=== PATIENT | male | born 1960 | race Caucasian/White ===

== ENCOUNTER → 2023-07-21 06:27 | Day surgery (SDC) | payer OTHER, SELFPAY ==
[2023-07-21 07:41] LABS: Glucose - Point of Care 129 mg/dl (70-99)
== END ==
LOC: GI 06:27
PROVIDERS: ATTENDING PHYSICIAN Surgery
DX: Z12.11 Encounter for screening for malignant neoplasm of colon (principal); K57.30 Diverticulosis of large intestine without perforation or abscess without bleeding; D12.8 Benign neoplasm of rectum; D12.4 Benign neoplasm of descending colon; Z86.010 Personal history of colon polyps
CPT/HCPCS: 45380; 88305; 82962

== ENCOUNTER 2024-12-24 17:14 | Inpatient (IN) | payer OTHER, SELFPAY ==
[2024-12-24] VITALS (13 sets, daily range): BP systolic 79–116; BP diastolic 57–96
--- NOTE | 2024-12-24 13:25 | ED.GENMED ---
History of Present Illness
General
Chief Complaint: Abdominal Pain
Source: patient
Exam Limitations: none
Time Seen by Provider: 12/24/24 13:24
History of Present Illness
History of Present Illness:
64yoM with a history of coronary artery disease s/p PCI, hypertension, and hyperlipidemia presenting for evaluation of diarrhea. Symptoms have been ongoing for 1 week. He reports diarrhea, lower abdominal cramping, fatigue, decreased appetite, and
shortness of breath. He is having at least 5 watery bowel movements daily. He was at the [facility] when symptoms began. He denies any suspicious food intake, sick contacts, or recent antibiotics. He denies any fevers, vomiting, chest pain,
hematochezia. No previous abdominal surgeries.
Phy Exam
General Physical Exam
General Presentation: well appearing and no apparent distress
General Skin: warm and dry
General Habitus: normal
General Mental: alert
ENT Exam
ENT Exam: normocephalic
Cardiovascular Exam
Cardiovascular Exam: regular rate/rhythm and no murmur
Pulmonary Exam
Pulmonary Exam: lungs clear, no respiratory distress, no rales, no crackles, no rhonchi and no wheezing
Gastrointestinal Exam
Gastrointestinal Exam: soft, non distended and other (+RLQ and suprapubic tenderness. Abdomen soft, non-distended. No rebound or guarding.)
Neurological Exam
Neurological Exam: alert
Latrell Coma Scale
Eye Opening: Spontaneous
Verbal Response: Oriented
Motor Response: Obeys Commands
GCS Total Score: 15
Skin Exam
Skin Exam: normal color and warm/dry
Psychiatric Exam
Psychiatric Exam: normal mood/affect
Course
Orders/Labs/Results
Orders:
Orders
12/24/24 13:17
Electrocardiogram (*1) Urgent
Reason for Study: Other
Other Reason for Exam: Possible Sepsis
12/24/24 13:18
EKG- Treatment ONCE
12/24/24 13:32
Cardiac Monitoring- Treatment ONCE
Stool Culture Urgent
RAINA Source: Feces/Stool
Specimen Description:
0.9% Sodium Chloride 1000 ml [Nss] 1,000 ml IV BOLUS
12/24/24 13:33
CT Abd/pelvis W Iv Cont Urgent
Comment:
Reason For Exam: lower abd pain, diarrhea
12/24/24 13:37
Complete Blood Count/With Diff Urgent
Comprehensive Metabolic Panel Urgent
Lactate Level [Lactic Acid] Urgent
Lipase Urgent
Magnesium Urgent
Troponin I Urgent
12/24/24 14:19
0.9% Sodium Chloride 1000 ml [Nss] 1,000 ml IV BOLUS
Abnormal Lab Results
12/24/24
13:37
MCH 31.9 H pg
(27.0-31.0)
Absolute Monos (auto) 0.8 H 10^3/uL
(0.1-0.6)
Monocytes % 11.2 H %
(1.7-9.3)
Chloride 110 H mmol/L
(98-107)
Carbon Dioxide 13 L* mmol/L
(22-30)
BUN 68 H mg/dl
(9-20)
Creatinine 1.7 H mg/dL
(0.7-1.3)
Glucose 125 H mg/dl
(70-99)
Calcium 10.9 H mg/dl
(8.4-10.2)
Alkaline Phosphatase 33 L U/L
(38-126)
Lipase 320 H U/L
(23-300)
12/24/24 13:37
12/24/24 13:37
Vital Signs
Initial and Last Documented VS:
Initial Vital Signs
Temp Pulse Resp BP Pulse Ox
98.1 F 107 16 79/59 98
12/24/24 13:11 12/24/24 13:11 12/24/24 13:11 12/24/24 13:11 12/24/24 13:11
Last Documented Vital Signs
Temp Pulse Resp BP Pulse Ox
98.1 F 86 15 93/74 99
12/24/24 13:11 12/24/24 16:00 12/24/24 16:00 12/24/24 16:00 12/24/24 15:00
MDM/Problems Addressed
Differential Diagnosis Includes:
64yoM here with diarrhea, fatigue, lower abd cramping x 1 week. No fevers. BP 79/59 on arrival and HR 107. BP improved to 90/63 on initial exam. He is non-toxic appearing. No signs of peritonitis on abdominal exam. Differential diagnosis includes
but is not limited to: gastroenteritis, food poisoning, diverticulitis, colitis, dehydration
Initial ED plan: Check abdominal labs, lactate, troponin/EKG, stool culture, and CT abdomen. IV fluid bolus.
*Pulse Oximetry
SaO2: 98
Oxygen Mode of Delivery: Room air
Patient hypoxic: no (98%)
*EKG
Interpreted by ED Provider?: Yes
EKG Intrepretation Date: 12/24/24
Heart Rate: 91
Rate: normal
Rhythm: sinus
[place]: normal axis
Interval: normal interval
QRS Pattern: normal QRS
Ischemia: no ischemia
*Critical Care Note
Total Time (30-74mins, 75-104mins- exclusive of procedures): Not Applicable
Update Note
Update Note:
Creatinine 1.7, up from 1.1 last month (patient able to show me his outpatient lab work on his phone). Bicarb is 13. White count and lactate normal. CT shows evidence of enteritis. BP improved with fluid resuscitation. Patient admitted for further
management.
ED Attending Note
-
Portions of this chart may have been created with voice recognition software.� Occasional wrong word or��sound alike� substitutions may have occurred due to the inherent limitations of voice recognition software.
Discharge Plan
Departure
Patient Disposition: Admit
Date of Disposition: 12/24/24
Time of Disposition: 16:13
Presentation/result/management discussed w/ accepting MD/DO: Hospitalist
Discharge Problem:
Acute kidney injury, High anion gap metabolic acidosis, Acute diarrhea
Referrals:
Dandy Helton CRNP [Family Provider]
Interventions
Interventions:
*Risk Screen - Suicide Last Done: 12/24/24 13:11
*General Assessment Last Done: 12/24/24 13:43
*Neglect/Abuse Screening Last Done: 12/24/24 13:11
*ED- Fall Risk Assessment Last Done: 12/24/24 13:43
*ED COVID-19 Vaccine History Last Done: 12/24/24 13:43
MJ-Tnfokm-Opttpoxlbo Assessment Last Done: 12/24/24 13:43
Discharge Date and Time
Print Language: MOLDOVAN
[2024-12-24] MEDS: NSS 1000 IV ×3 (13:38→20:52)
[2024-12-24 13:52] LABS: Hematocrit 44.4 % (39.0-52.0); Hemoglobin 15.3 g/dL (13.0-18.0); Mean Corp Hgb Conc. 34.5 g/dL (33.0-37.0); Mean Corpuscular Volume 92.5 fL (80.0-94.0); Nucleated Red Blood Cells % 0 % (-); Platelet Count 215 10^3/uL (130-400); Red Cell Dist. Width 13.1 % (11.5-14.5)
[2024-12-24 14:14] LABS: ALT (SGPT) 26 U/L (0-50); AST (SGOT) 18 U/L (17-59); Albumin 4.9 g/dl (3.5-5.0); Alkaline Phosphatase 33 U/L (38-126); Blood Urea Nitrogen 68 mg/dl (9-20); Calcium 10.9 mg/dl (8.4-10.2); Carbon Dioxide 13 mmol/L (22-30); Chloride 110 mmol/L (98-107); Glucose 125 mg/dl (70-99); Lipase 320 U/L (23-300); Magnesium 2.0 mg/dl (1.6-2.3); Potassium 5.0 mmol/L (3.5-5.1); Sodium 136 mmol/L (135-145); Total Protein 7.4 g/dl (6.3-8.2); eGFR 45.02
[2024-12-24 14:15] LABS: Troponin I < 0.012 ng/ml
--- NOTE | 2024-12-24 16:24 | HPS.HSE ---
Family Physician
-
Family Physician: KIP Campa
Chief Complaint
-
diarrhea
History of Present Illness
HPI
64M HX CAD s/p s/p PCI, hypertension, and hyperlipidemia seen at ER
- for evaluation of diarrhea.
- at least 5 watery bowel movements daily.
- Symptoms have been ongoing for 1 week.
- POS lower abdominal cramping, fatigue, decreased appetite, and shortness of breath.
- He was at the [facility] when symptoms began.
- He denies any suspicious food intake, sick contacts, or recent antibiotics.
- He denies any fevers, vomiting, chest pain, hematochezia.
- No previous abdominal surgeries.
Medical History
Past Medical History
Past Medical History: Reports CAD (s/p PCI ), HTN and Hypercholesterolemia
Past Surgical History: Reports None
Social History
Tobacco: Non-smoker
Family History
Family History: Not pertinent
Allergies / Home Medications
Allergies reflects when Allergies were last updated in [facility].
Home Medications with original date entered in [facility]
Allergy/Medication List:
Allergies
Allergy/AdvReac Type Severity Reaction Status Date / Time
No Known Allergies Allergy Verified 12/24/24 13:11
If medication reconciliation has not been performed, why?: Medication List N/A
Review of Systems
-
Constitutional: Reports No Symptoms
EENT: Reports No Symptoms
Respiratory: Reports No Symptoms
Cardiac: Reports No Symptoms
Abdomen/GI: Reports Abdominal Pain and Diarrhea (loose watery )
: Reports No Symptoms
Musculoskeletal: Reports No Symptoms
Skin: Reports No Symptoms
Neurological: Reports No Symptoms
Endocrine: Reports No Symptoms
Hematologic/Lymphatic: Reports No Symptoms
Psych: Reports No Symptoms
Physical Exam
Vital Signs
Vital Signs
Temp Pulse Resp BP Pulse Ox
98.1 F 86 15 93/74 99
12/24/24 13:11 12/24/24 16:00 12/24/24 16:00 12/24/24 16:00 12/24/24 15:00
Physical Exam
General: Well Developed, Well Nourished and No Apparent Distress
HEENT: NormoCephalic, Moist mucous membranes and Atraumatic
Respiratory: Clear
Cardiac: S1/S2 and Regular Rhythm; No Murmur or Rub
GI: Organomegaly and Other (+RLQ and suprapubic tenderness. Abdomen soft, non-distended. No rebound or guarding)
Rectal: Deferred by Provider
Musculoskeletal: No Clubbing, No Cyanosis and No Edema
Skin: No Rash
Neuro: Nonfocal/grossly intact
Laboratory Results
-
12/24/24 13:37
12/24/24 13:37
Laboratory Results
Lactic Acid 1.2 mmol/L (0.7-2.0) 12/24/24 13:37
Total Bilirubin 0.8 mg/dl (0.2-1.3) 12/24/24 13:37
AST 18 U/L (17-59) 12/24/24 13:37
ALT 26 U/L (0-50) 12/24/24 13:37
Alkaline Phosphatase 33 U/L (38-126) L 12/24/24 13:37
Troponin I < 0.012 ng/ml 12/24/24 13:37
Lipase 320 U/L (23-300) H 12/24/24 13:37
Data Reviewed
-
CT Scan: Report Reviewed by me
Lab Data: Labs Reviewed by me
Impression/Plan
-
Vital Signs
Temp Pulse Resp BP Pulse Ox
98.1 F 86 15 93/74 99
12/24/24 13:11 12/24/24 16:00 12/24/24 16:00 12/24/24 16:00 12/24/24 15:00
Abnormal Lab Results
12/24/24
13:37
MCH 31.9 H
Absolute Monos (auto) 0.8 H
Monocytes % 11.2 H
Chloride 110 H
Carbon Dioxide 13 L*
BUN 68 H
Creatinine 1.7 H
Glucose 125 H
Calcium 10.9 H
Alkaline Phosphatase 33 L
Lipase [address]/pelvis W Iv Cont
- Likely nonspecific enteritis/diarrhea syndrome.
- No bowel obstruction.
- Minor diverticulosis without acute diverticulitis.
- The appendix is normal.
- No obstructive uropathy.
- 10 mm right renal hyperdense mass. Uncertain if this represents a solid mass or proteinaceous/hemorrhagic cyst.
- Initial step for further evaluation recommended with nonemergent/elective MRI.
Last hospitalist admission:
ASSESSMENT & PLAN
Pending Rx reconciliation
Acute watery diarrhea with colicky abdomen - suspect infective ( viral vs. bacterial ? Salmonella )
Hypotensive ( 80/60) due to hypovolemia
Prolonged traveller 's diarrhea ?
- stool studies: Cx, Noro virus, C Diff
- NG MA with HCO3 13
- Nl LA
- BP improved with IVF NS 2 L
- empiric PO Azithromycin 500 mg daily
- case dw ID for ABx of choice - If no progress , to consider ID consult
Pre renal KI due to volume loss from dihhrea
Creatinine 1.7 (up from 1.1 last month
Normal AG MA 13
- c/w IV NS
- Trend BMP and AG daily
CAD HX
s/p PCI wit 3 stent
HLD
- on [employer] Atorvastatin and Fenofibrate
Essential HTN
- Hold Valsartan/HCTZ due to hypotension
10 mm right renal hyperdense mass. Uncertain if this represents a solid mass or proteinaceous/hemorrhagic cyst.
- further evaluation with nonemergent/elective MRI.
DVT Px: SCD
Full code
IP MS
[2024-12-24] MEDS: ZITHROMAX 500 MG PO (20:52)
[2024-12-25] MEDS: NSS 1000 IV (03:20)
[2024-12-25 08:08] LABS: Hematocrit 37.9 % (39.0-52.0); Hemoglobin 13.1 g/dL (13.0-18.0); Mean Corp Hgb Conc. 34.6 g/dL (33.0-37.0); Mean Corpuscular Volume 93.3 fL (80.0-94.0); Platelet Count 188 10^3/uL (130-400); Red Cell Dist. Width 13.2 % (11.5-14.5)
[2024-12-25 08:27] VITALS: BP 107/62
[2024-12-25 08:42] LABS: ALT (SGPT) 20 U/L (0-50); AST (SGOT) 16 U/L (17-59); Albumin 3.6 g/dl (3.5-5.0); Alkaline Phosphatase 33 U/L (38-126); Blood Urea Nitrogen 39 mg/dl (9-20); Calcium 8.7 mg/dl (8.4-10.2); Carbon Dioxide 17 mmol/L (22-30); Chloride 115 mmol/L (98-107); Glucose 116 mg/dl (70-99); Potassium 4.9 mmol/L (3.5-5.1); Sodium 139 mmol/L (135-145); Total Protein 5.6 g/dl (6.3-8.2); eGFR > 60.00
[2024-12-25] MEDS: ZITHROMAX 500 MG PO (08:56)
--- NOTE | 2024-12-25 10:55 | W.PN.UPDATE ---
Update Note
Progress Note Update
I saw and evaluated the patient. I reviewed the resident�s note and agree with findings and plan as documented in the resident�s note.
Diarrhea has resolved, denies abd pain.
Gen: NAD, AAOx3.
Eyes: EOMI, PERRLA, no scleral icterus.
Neck: supple.
CV: RRR, +S1/S2, no m/r/g.
Resp: CTAB, no rales, wheezes, or rhonchi.
Abd: +BS, soft, NT, ND
Skin: No rashes.
Neuro: CN 2-12 intact, non-focal.
Psych: Normal mood and affect.
12/25/24 06:05 Feces/Stool - Final
Negative for Norovirus GI and GII.
12/25/24 06:05 Feces/Stool C. difficile GDH Antigen & Toxins - Final
Negative for toxigenic C.difficile
CT A/P: Likely nonspecific enteritis/diarrhea syndrome. No bowel obstruction. Minor diverticulosis without acute diverticulitis. The appendix is normal. No obstructive uropathy. 10 mm right renal hyperdense mass. Uncertain if this represents a solid
mass or proteinaceous/hemorrhagic cyst. Initial step for further evaluation recommended with nonemergent/elective MRI.
Acute watery diarrhea:
-likely viral gastroenteritis
-Norovirus/C diff NEG
-was hypotensive due to hypovolemia, BP improved with IVFs
-currently on empiric Azithro
KI:
-due to prerenal azotemia/volume loss due to diarrhea as well as ARB
-cont to hold antihypertensives
-KI has resolved with IVFs
-Non-AG met acidosis, improving with IVFs
Other problems:
CAD s/p stents: cont ASA/statin
HLD: cont statin
Essential HTN: cont to hold antihypertensives
DM2: resume Synjardy-XR on d/c
Incidental finding:
10 mm right renal hyperdense mass. Uncertain if this represents a solid mass or proteinaceous/hemorrhagic cyst. Further evaluation with nonemergent/elective MRI.
FULL/SCDs
Medically cleared for d/c.
Total time spent on d/c = 31 min. This included today's physical exam, progress note, review of laboratory and diagnostic data, preparation of discharge documents and prescriptions, and discussions about the pt's hospital course and discharge plan
with the patient and other biomedical service engineer involved in the patient's care.
--- NOTE | 2024-12-25 11:14 | W.PN.HOSP.TC ---
Today's Communication/Plan
-
Follow-up stool studies
Diarrhea resolved, possibly discharged home today
Stop antihypertensives at discharge, have him see PCP in 3 days for BP check and med continuation
Assessment / Plan
Assessment / Plan
Mr. Jiang is a 64-year-old male with CAD s/p PCI, essential hypertension, hyperlipidemia who presented to the ED on 12/24/2024 for evaluation of 1 week of ongoing watery diarrhea. In the ED he was started on p.o. azithromycin 500 mg daily and was
hypotensive (80/60) which resolved with 2L IV fluid. CT A/P in ED remarkable for diverticulosis and 10 mm right renal hyperdense mass, uncertain if solid or proteinaceous/hemorrhagic cyst (will require nonemergent/elective MRI outpatient). Since
admission, Mr. Jiang has not had any diarrhea, is tolerating a diet well, and thus far his stool studies has been negative (C. difficile, norovirus, others pending).
#Watery diarrhea, resolving
#Hypotension, resolved
Of note, patient has not had any diarrhea since being admitted to the hospital. His last bowel movement was 12/25 and it was formed.
- Follow-up stool studies
--Norovirus (-), C. difficile (-), culture/Salmonella/Shigella pending
- Continue azithromycin 500 g p.o. daily for 3-day course total
- S/p IV fluids: Hypotension resolved, patient eating well, DC fluids today
- Continue low residue diet, advance as tolerated
#KI, resolved
Creatinine in ED was 1.7, 12/25, creatinine is 0.9. KI likely prerenal ISO diarrhea and poor p.o. intake, given improvement with IV fluids.
- CTM
#Right renal hyperdense mass, incidental
This is an incidental finding seen on CT A/P on 12/24/2024. Patient was made aware that he will need outpatient follow-up for this.
- Nonemergent/elective MRI outpatient
#CAD s/p PCI
#HLD
- Continue home atorvastatin 80 mg p.o. at bedtime and fenofibrate 160 mg p.o. daily
- Continue aspirin 81 mg p.o. daily
#Essential hypertension
- Hold home valsartan/HCTZ ISO hypotension: Stop at discharge, follow-up with PCP 3 days after discharge for BP check
#BPH
- Hold tamsulosin 0.8 mg p.o. daily ISO hypotension
#Diabetes
- Hold home empagliflozin-metformin (Synjardy XR) 1 tab p.o. twice daily
CODE STATUS: Full code
Anticipated Discharge: Today
Subjective/Interval History
-
Date of Service: December 25, 2024
-This morning, he reports feeling 'great 'and having 1 formed BM this morning. He has not had any episodes of diarrhea since being admitted. His diet was advanced to low residue today, he tolerated it well. He states that he had an Japanese okay
in the caf� yesterday, without N/V, abdominal pain, diarrhea.
-He feels ready to go home, HDS. was on the phone while I was bedside and all questions were answered. He was informed of the renal mass seen on CT and need for outpatient follow-up.
Objective Data
-
Labs:
Laboratory Results
12/25/24
07:29
WBC 6.5
Hgb 13.1
Hct 37.9 L
Plt Count 188
Sodium 139
Potassium 4.9
Chloride 115 H
Carbon Dioxide 17 L
BUN 39 H
Creatinine 0.9
Glucose 116 H
Calcium 8.7 D
Total Bilirubin 0.3
AST 16 L
ALT 20
Alkaline Phosphatase 33 L
Vital Signs:
Vital Signs
Temp Pulse Resp BP Pulse Ox
98.7 F 74 16 107/62 98
12/25/24 08:27 12/25/24 08:27 12/25/24 08:27 12/25/24 08:27 12/25/24 08:27
I&O
12/24/24 12/25/24 12/26/24
06:59 06:59 06:59
Intake Total 480 / 480
Balance 480 / 480
Review of Systems
-
History Source: Patient
All other systems: Reviewed and negative
Physical Exam
-
General: Well Developed, Well Nourished, No Apparent Distress, Comfortable and Conversant
HEENT: Normocephalic, Atraumatic and Moist Mucous Membranes
Respiratory: Clear to Auscultation and Non Labored Respirations
Cardiac: Regular Rhythm and S1/S2
GI: Soft, Nontender and Nondistended
Musculoskeletal: No Clubbing, No Cyanosis and No Edema
Skin: Warm and Dry
Neuro: AO x 3
Psych: Calm and Intact Judgement/Insight
--- NOTE | 2024-12-25 12:10 | CM ---
Reviewed the chart notes and spoke with the patient at the bedside. Patient resides with spouse in a two story home with no steps to enter. The patient reports no DME/VN/SNF in the past. Confirmed pharmacy of choice is [facility] [address]
[place]. Patient anticipates being discharged today to home. Spouse will provide transportation. CM continues to be available to patient/family and is monitoring medical plan for needs at discharge.
Plan: Discharge to home when medically stable. No needs identified at this time.
[2024-12-25 13:00] VITALS: BP 110/72
[2024-12-25] MEDS: ASPIR LOW (ENTERIC COATED) 81 MG PO (13:27)
[2024-12-25] MEDS: NSS IV (13:27)
--- NOTE | 2024-12-25 17:15 | W.DCSUMMARY ---
Discharge Summary
Discharge Data
Date of Admission: 12/24/24
Date of Discharge: 12/25/24
-
Pending Results: Yes
Additional Pending Results:
Stool culture: Will call patient if comes back remarkable
Hospital Course
Discharging Physician : José Miguel Sevilla MD/REE
Disposition : Home
Principal Discharge diagnosis : Acute watery diarrhea, likely viral gastroenteritis
Hospital Course : Mr. Jiang is a 64-year-old male with CAD s/p PCI, essential hypertension, hyperlipidemia who presented to the ED on 12/24/2024 for evaluation of 1 week of ongoing watery diarrhea. In the ED he was started on p.o. azithromycin 500
mg daily for total 3-day course and was hypotensive (80/60) which improved with 2L IV fluid. CT A/P in ED remarkable for diverticulosis and 10 mm right renal hyperdense mass, uncertain if solid or proteinaceous/hemorrhagic cyst (will require
nonemergent/elective MRI outpatient). He was admitted to [facility] for further evaluation and management. Throughout his hospital course, Mr. Jiang did not have any diarrhea, tolerated a low residue diet well, and had 1 formed stool on the morning
of 12/25/2024. On admission his creatinine was 1.7 in the setting of dehydration and water loss from diarrhea. His KI resolved the next lab draw on 12/25 s/p IV fluids. His stool studies were negative for C. difficile, norovirus, while others were
pending on discharge. The most likely etiology of his symptoms is likely viral gastroenteritis. However given that he was started on azithromycin and completed 2 days in the hospital, he was discharged with 1 tablet to finish his total 3-day
course with last dose on 12/26/2024. His blood pressures continued to be soft compared to his baseline, so we held his valsartan/HCTZ and tamsulosin 0.8 mg. He was also given instructions to follow-up with his PCP in 3 days for blood pressure check,
discussion on when to resume antihypertensives, and to schedule follow-up imaging for the incidental finding of renal mass on CT abdomen/pelvis 12/24/2024.
Hospital course by problem is as below:
#Watery diarrhea, resolving
#Hypotension, resolved
Of note, patient has not had any diarrhea since being admitted to the hospital. His last bowel movement was 12/25 and it was formed.
- Follow-up stool studies
--Norovirus (-), C. difficile (-), culture/Salmonella/Shigella/Campylobacter pending
- Continue azithromycin 500 g p.o. daily for 3-day course total, last dose on 12/26/2024
- S/p IV fluids: Hypotension resolved, patient eating well, DC fluids today
- Continue low residue diet, advance as tolerated
#KI, resolved
Creatinine in ED was 1.7, 12/25, creatinine is 0.9. KI likely prerenal ISO diarrhea and poor p.o. intake, given improvement with IV fluids.
- CTM
#Right renal hyperdense mass, incidental
This is an incidental finding seen on CT A/P on 12/24/2024. Patient was made aware that he will need outpatient follow-up for this.
- Nonemergent/elective MRI outpatient
#CAD s/p PCI
#HLD
- Continue home atorvastatin 80 mg p.o. at bedtime and fenofibrate 160 mg p.o. daily
- Continue aspirin 81 mg p.o. daily
#Essential hypertension
- Hold home valsartan/HCTZ ISO hypotension: Stop at discharge, follow-up with PCP 3 days after discharge for BP check
#BPH
- Hold tamsulosin 0.8 mg p.o. daily ISO hypotension
#Diabetes
- Hold home empagliflozin-metformin (Synjardy XR) 1 tab p.o. twice daily
Important imaging findings :
CT abdomen/pelvis 12/24/2024:
IMPRESSION:
Likely nonspecific enteritis/diarrhea syndrome. No bowel obstruction. Minor diverticulosis without acute diverticulitis.
The appendix is normal.
No obstructive uropathy.
10 mm right renal hyperdense mass. Uncertain if this represents a solid mass or proteinaceous/hemorrhagic cyst. Initial step for further evaluation recommended with nonemergent/elective MRI.
Discharge Plan
-
Patient Disposition: Home (Routine Discharge)
Discharge Diagnosis/Procedures: Acute watery diarrhea, likely viral gastroenteritis
Condition: Good
Diet: Low Cholesterol, Low Sodium, Low Residue and Diabetic, Carb Controlled
Additional Diets: Advance as tolerated
Activity: No restrictions
Driving Restrictions: As prior to admission
Bathing Restrictions: None
Others Tests: For the 10 mm right renal hyperdense mass seen on your CT abdomen/pelvis please talk to your PCP about getting an MRI for further evaluation.
Referrals:
Dandy Helton CRNP [Family Provider] - in two to three days
Referral Note: Please see your PCP in 3 days for a BP check, guidance on antihypertensive medication resumption, and to schedule MRI evaluation for the renal mass seen on CT.
Additional Discharge Medication Instructions: Take azithromycin 250 mg x 2 tablets tomorrow 12/26/2024 to complete your 3-day course (2 days completed in hospital)
Stop taking tamsulosin and valsartan/hydrochlorothiazide given your low blood pressure. See your PCP in 3 days for a blood pressure check and to discuss restarting these medicines. Also asked your PCP for a script for an abdominal MRI for the
renal mass seen on CT.
Prescriptions:
New
azithromycin 250 mg Tablet
500 mg PO DAILY 1 Days Qty: 2 0RF
Continued
atorvastatin 80 mg tablet
80 mg PO HS
aspirin 81 mg Tablet,Delayed Release (Dr/Ec)
81 mg PO DAILY
fenofibrate 160 mg tablet
160 mg PO DAILY
icosapent ethyl 1 gram capsule
2 g PO BID
Synjardy XR 5-1,000 mg tablet, IR - ER, biphasic 24hr
1 tab PO BID
Discontinued
valsartan-hydrochlorothiazide 160-12.5 mg tablet
1 tab PO BID
tamsulosin 0.4 mg capsule
0.8 mg PO DAILY
Discharge Orders:
Discharge Patient (As Directed); Ordered 12/25/24
Ordered By: Gilberto Camargo
Discharge Date and Time
Discharge Date/Time: 12/25/24 14:26
Print Language: MALAYSIAN
== END 2024-12-25 14:26 | disposition home or self-care (01) | DRG 392 ==
LOC: 2 NORTH 17:14
PROVIDERS: Physician Assistant; ADMITTING PHYSICIAN Internal Medicine; ATTENDING PHYSICIAN Internal Medicine; EMERGENCY PHYSICIAN Emergency Medicine
DX: A08.4 Viral intestinal infection, unspecified (principal); N17.9 Acute kidney failure, unspecified; I10 Essential (primary) hypertension; I25.10 Atherosclerotic heart disease of native coronary artery without angina pectoris; E78.00 Pure hypercholesterolemia, unspecified; Z98.61 Coronary angioplasty status; E86.1 Hypovolemia; Z79.82 Long term (current) use of aspirin; N40.0 Benign prostatic hyperplasia without lower urinary tract symptoms; E11.9 Type 2 diabetes mellitus without complications; E86.0 Dehydration; Z79.899 Other long term (current) drug therapy
CPT/HCPCS: 74177; 80053; 83605; 83690; 83735; 84484; 85025; 85027; 87045; 87046; 87324; 87427; 87449; 87798; 93005; 96360; 96361; 99285; Q9967

== ENCOUNTER → 2025-01-31 18:51 | Outpatient (REF) | payer OTHER, SELFPAY | LOC: PAVMRI 18:51 | PROVIDERS: ATTENDING PHYSICIAN Physician Assistant Surgical | DX: M25.512 Pain in left shoulder (principal) | CPT/HCPCS: 73221 ==

== ENCOUNTER → 2025-04-03 18:10 | Outpatient (REF) | payer OTHER, SELFPAY | LOC: MRI 3T 18:10 | DX: N28.89 Other specified disorders of kidney and ureter (principal) | CPT/HCPCS: 74183; A9575 ==